=== PATIENT | female | born 1995 | race Two or more races ===

== ENCOUNTER 2024-10-13 07:48 | Emergency (ER) | payer OTHER, SELFPAY ==
[2024-10-13 07:49] VITALS: BMI 31.4
[2024-10-13 07:58] VITALS: BP 110/70; PULSE 77; RESP 16; TEMP 37; O2SAT 98
--- NOTE | 2024-10-13 08:17 | XR_ITS ---
Examination: Complete OB ultrasound, less than 14 weeks, transabdominal Date and time of exam: October 13, 2024, 0901 hrs. Indications: Heavy vaginal bleeding beginning 8 days ago Technique: Obstetrical ultrasound images less than 14 weeks performed via transabdominal imaging Findings: A normal shaped single intrauterine gestation is present in the uterus. CRL 3.9 cm corresponds to 10 weeks 5 day gestational age Cardiac motion 147 BPM Adjacent subchorionic hemorrhage 21 x 9 x 21 mm Ultrasonographic survey of visible structures unremarkable. Amniotic fluid volume appears appropriate for this estimated gestational age. Right ovary 3.1 cm arterial flow Left ovary 3.4 cm arterial flow. Impression: Viable intrauterine gestation 10 weeks 5 days Recommend short-term follow-up pelvic sonography, given the subchorionic hemorrhage
--- NOTE | 2024-10-13 08:17 | PD.EDABDPN ---
ED Abdominal Pain RME/HPI General Chief Complaint: Abdominal Pain Stated complaint: 4WK PREG/ABD PAIN Time seen by provider: 10/13/24 07:50 Arrival date/time: 10/13/24 07:48 This is a case of 29-year-old female who came in in the emergency room due to pelvic pain and vaginal bleeding patient is 4 weeks LMP July 27, 2024 patient is 2 para 1 patient states that she started to have pelvic pain cramping in character and vaginal spotting 1 week prior to arrival in the emergency room persistence of the symptoms this patient decided to start consult here in the emergency room Limitations: no limitations Related Data Home Medications ?Medication ?Instructions ?Recorded ?Confirmed [id number] 1 mg 1 tab PO DAILY 08/04/22 08/22/22 tablet Allergies Allergy/AdvReac Type Severity Reaction Status Date / Time No Known Allergies Allergy Verified 10/13/24 07:53 Review of Systems Review of Systems Systems Reviewed: All systems reviewed, normal except as documented Constitutional Constitutional: Reports system reviewed and no additional complaints, except as documented ENT Ears, Nose, Mouth, and Throat: Denies dysphagia and Denies odynophagia Cardiovascular Cardiovascular: Reports system reviewed and no additional complaints, except as documented Respiratory Respiratory: Reports system reviewed and no additional complaints, except as documented Gastrointestinal Gastrointestinal: Reports system reviewed and no additional complaints, except as documented, Reports abdominal pain, Denies coffee ground emesis, Denies constipation, Reports cramping, Denies diarrhea, Denies dyspepsia, Denies dysphagia, Denies early satiety, Denies excessive flatus, Denies fecal incontinence, Denies heartburn, Denies hematemesis, Denies hematochezia, Denies loose stools, Denies melena, Denies odynophagia, Denies tenesmus and Denies vomiting Genitourinary Genitourinary: Reports system reviewed and no additional complaints, except as documented, Reports abnormal vaginal bleeding, Denies dysuria, Denies genital pruritis, Denies urinary frequency, Denies urinary incontinence, Denies urinary hesitancy, Denies urinary urgency, Denies vaginal discharge, Denies vaginal dryness, Denies vaginal odor and Denies vaginal pruritus Integumentary/Breasts Skin/Breast: Reports system reviewed and no additional complaints, except as documented Neurologic Neurologic: Reports system reviewed and no additional complaints, except as documented Past Medical History Past Medical History NEUROLOGIC: Positive Neurological Disorders and Meningitis (as a ) CARDIAC: Negative Cardiac Disorders or Congestive Heart Failure RESPIRATORY: Negative Chronic Obstructive Pulmonary Disease (COPD) GASTROINTESTINAL: Negative Gastrointestinal Disorders or Hepatitis GENITOURINARY: Negative Genitourinary Disorders or Renal Disease REPRODUCTIVE: Negative Pelvic Inflammatory Disease MUSCULOSKELETAL: Negative Musculoskeletal Disorders ENDOCRINE: Negative Endocrine Disorders, Diabetes Mellitus Type 1 or Diabetes Mellitus Type 2 HEMATOLOGIC: Negative Blood Disorders OTHER HISTORY: Positive Hospitalization (gastric bypass (06/2021)) and Chicken Pox (); Negative Autoimmune Disease, Down Syndrome, Developmental Delay, Shingles, Falls, Blood Transfusions, Blood Transfusion Reaction, Anesthesia Reactions, Organ Transplant, Chemotherapy, Radiation Therapy, Hyperbaric Therapy, MRSA, VRSA, Vancomycin-Resistant Enterococci, Human Immunodeficiency Virus (HIV), Measles, Mumps, Rubella (Panamanian Measles), Pertussis, Clostridium Difficile or Cancer Family History FAMILY HISTORY: Positive Family Cancer (Breast CA (grandmother)) and Family Surgery (Mother- ankle); Negative Family Psychiatric Problems, Family Respiratory Disorders, Family Cardiac Disorders, Family Gastrointestinal Problems or Family Anesthesia Reaction Surgical History SURGICAL: Positive Abdominal Surgery and Gastric Bypass Surgery (gastric sleebe (06/2021)); Negative Cardiac Surgery, Endocrine Surgery, Ear Surgery, Nephrectomy, Joint Replacement, Neurologic Surgery, Mastectomy, Section, Vasectomy or Organ Transplant Social History SMOKING STATUS: Never smoker SECOND HAND EXPOSURE: No ED Exam General Limitations: Present no limitations General appearance: Present alert and in no apparent distress Head Head exam: Present atraumatic Eye Eye exam: Present normal appearance, PERRL and EOMI ENT ENT exam: Present normal exam, normal oropharynx and mucous membranes moist Neck Neck exam: Present normal inspection, full ROM and trachea midline Chest Chest inspection: Present normal inspection and symmetric chest wall rise Respiratory Respiratory exam: Present normal lung sounds bilaterally; Absent respiratory distress, wheezes, stridor, accessory muscle use or prolonged expiratory phase Cardiovascular Cardiovascular exam: Present regular rate, normal rhythm and normal heart sounds Abdominal Exam Abdominal exam: Present soft and normal bowel sounds; Absent distention, tenderness, guarding, rebound, rigidity, diminished bowel sounds, hyperactive bowel sounds, hypoactive bowel sounds, organomegaly, trauma, psoas sign, obturator sign, Cantrell's sign, Rovsing's sign or tenderness at McBurney's Point Extremities Exam Extremities exam: Present normal inspection and full ROM Back Exam Back exam: Present normal inspection and full ROM Neurological Exam Neurological exam: Present alert, oriented X3, CN II-XII intact, normal gait and reflexes normal; Absent motor sensory deficit Psychiatric Psychiatric exam: Present normal affect and normal mood Skin Skin exam: Present warm, dry, intact and normal color Course Quality Measures none Orders Category Date Time Status US OB <= 14 weeks fetus Stat Exams 10/13/24 08:17 Completed ABO/RH Type Stat Lab 10/13/24 08:52 Results Beta HCG,Quantitative Stat Lab 10/13/24 08:52 Completed CBC Stat Lab 10/13/24 08:52 Completed CMP [Comprehensive Metabolic Panel] Stat Lab 10/13/24 08:52 Completed Urinalysis Stat Lab 10/13/24 08:30 Completed Vital Signs Vital signs: Vital Signs Temperature 98.6 F 10/13/24 07:58 Pulse Rate 77 10/13/24 07:58 Respiratory Rate 16 10/13/24 07:58 Blood Pressure 110/70 10/13/24 07:58 Pulse Oximetry (%) 98 10/13/24 07:58 Oxygen Delivery Method Room Air 10/13/24 07:58 Patient is afebrile not tachycardic not tachypneic BP stable not hypoxic oxygen saturation is 98% in room air Abdominal Pain MDM MDM Narrative MDM Narrative:: This is a case of 29-year-old female who came in in the emergency room due to pelvic pain and vaginal bleeding patient is 4 weeks LMP July 27, 2024 patient is 2 para 1 patient states that she started to have pelvic pain cramping in character and vaginal spotting 1 week prior to arrival in the emergency room persistence of the symptoms this patient decided to start consult here in the emergency room patient is awake alert oriented not in distress nontoxic looking excellent skin turgor no signs and symptoms of sepsis no signs and symptoms of dehydration abdominal exam is benign nonsurgical no guarding no rebound no rigidity blood test showed no leukocytosis no anemia kidney and liver function is normal no electrolyte imbalance patient A+ blood type patient beta-hCG [id number] urinalysis normal no urinary tract infection patient pelvic ultrasound showed 10 weeks with heart rate of 147 at this point patient is treated as threatened I discussed the patient to follow-up with primary care physician in 2 days for reevaluation and need to see an OB outside industrial sales representative in 2 days for checkup and for reevaluation of threatened or miscarriage patient was advised if not seen in 2 days the OB return to the emergency room for repeat beta-hCG and pelvic ultrasound patient was advised also for any worsening symptoms or any emergent concerns she needs to return to the emergency room immediately or call 911 keep herself hydrated continue multivitamins no sex until cleared by the primary care physician and pelvic rest as advised Patient was discharged with comfortable condition walking with stable gait. Patient verbalized no further complains explained diagnosis and answered patient question. Patient is comfortable with the proposed management plan including the need to follow up with his/her primary care physician and any specialist if applicable Discussed patient for any urgent condition or worsening sx, He/She needed to go to emergency room immediately or call 911. Patient acknowledge the responsibility to follow up as instructed and to monitor her/his symptoms. For any persistence of the symptoms for more than 3-5 days return precaution advised. Discussed the result of the test and was given printed discharge instruction Patient data External records reviewed:: [facility] previous records Clinical information provided by:: none Social determinants that could affect healthcare access:: none Patient has the following chronic illnesses:: None How is presenting disease/condition affected by chronic disease/condition?: no chronic disease Evaluation data The following diagnostics were reviewed and interpreted by me:: lab results and radiology exam(s) Lab and/or radiology exams considered but not ordered:: Reviewed Interpretation Summary: Reviewed Medications / Prescriptions Medications or Prescriptions considered but not ordered:: Given Medication administrations:: Given Consultations Consultation(s) initiated? (list below): No Diagnosis Differential diagnosis abdominal pain: other (Threatened urinary tract infection) Most likely diagnosis given after review of the tests above:: Abdominal pain in threatened Admission Indicated Admission indicated?: not indicated Explain why admission is indicated or not indicated:: Not indicated Admission Request Was there a request for admission?: No Admission Attestation Admission request attestation: Not indicated Disposition Plan Disposition Plan: Discharge Discharge Attestation Discharge Attestation: The patient and all family members were given an opportunity to ask questions and understood the discharge instructions. Discharge instructions specifically effects, indications for sooner follow up or return to the emergency department, and the expected course of current diagnosis. Patient condition: Stable Discharge Plan Plan Patient Disposition: HOME (Self Care) Patient condition on transfer: Stable Prescriptions/Referrals Prescriptions/Med Rec: No Action 1 mg Tablet 1 tab PO DAILY Referrals: Omar Blue MD [Primary Care Provider] - In 1 week Problem List Clinical Impression: Abdominal pain during , Miscarriage, threatened, early Patient/Caregiver Discharge Instructions Education Materials: ED Abdominal Pain, Early , ED Possible Miscarriage ... Additional Instructions: Follow-up with your primary care physician in 2 days for reevaluation it is very important to see an OB outside industrial sales representative in 2 days for reevaluation and checkup if not seen OB in 2 days return in the emergency room for repeat beta-hCG and pelvic ultrasound for reevaluation of threatened for any worsening symptoms or any emergent concern return to the emergency room immediately or call 911 increase fluid intake continue multivitamins no sex until cleared by your OB pelvic rest is advised Print Language: Korean Stand Alone Forms: Yulissa Award Info., Patient Portal Info Letter 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
[2024-10-13 08:37] LABS: Collection Type, Urine Voided
[2024-10-13 08:58] LABS: Bacteria,Urine 1+; Bilirubin,Urine Negative (Negative); Blood,Urine Negative (Negative); Color,Urine Yellow (Lt Yel-Yel); Glucose, Urine Negative (Negative); Ketones,Urine Negative (Negative); Leukocyte Esterase,Urine Negative (Negative); Nitrite,Urine Negative (Negative); PH,Urine 7.5 (5.0-7.0); Protein,Urine Trace (Neg - Trace); RBC,Urine 2 /hpf (0-3); Specific Gravity,Urine 1.031 (1.001-1.035); Squamous Epithelial Cell,Urine 2 /hpf (0-5); Urobilinogen,Urine Negative mg/dL (0.0-1.0); WBC,Urine < 1 /hpf (0-5)
[2024-10-13 08:59] LABS: Clarity,Urine Hazy (Clear/Hazy)
[2024-10-13 09:08] LABS: Basophils % (Auto) 1 % (0-2.5); Eosinophils # (Auto) 0.1 Thou/mm3 (0.0-0.5); Eosinophils % (Auto) 1 % (0-10); Hematocrit 38.2 % (36.0-46.0); Immature Granulocytes % (Auto) 0 % (0-0); Immature Granulocytes Auto 0.03 Thou/mm3 (0.00-0.00); Lymphocytes # (Auto) 1.7 Thou/mm3 (1.0-4.8); Lymphocytes % (Auto) 23 % (10-50); Mean Corpuscular Hemoglobin 28.1 pg (25.0-35.0); Mean Corpuscular Volume 83 fL (80-100); Monocytes # (Auto) 0.4 Thou/mm3 (0.0-0.8); Monocytes % (Auto) 6 % (0-12); Neutrophils # (Auto) 5.3 Thou/mm3 (1.8-7.7); Neutrophils % (Auto) 70 % (37-80); Nucleated Red Blood Cell % 0 /100 WBC (0); Platelet Count 295 Thou/mm3 (140-440); RDW Standard Deviation 38.8 fL (36.4-46.3); Red Blood Count 4.63 Miln/mm3 (4.00-5.20); White Blood Count 7.7 Thou/mm3 (3.6-11.0)
[2024-10-13 09:28] LABS: Alanine Aminotransferase 12 U/L (10-49); Albumin, Serum 4.5 gm/dL (3.5-5.0); Albumin/Globulin Ratio 1.7 (1.2-2.2); Alkaline Phosphatase 63 U/L (46-116); Anion Gap 10 (7-16); BUN/Creatinine Ratio 15 Ratio (12-20); Bilirubin,Total 0.4 mg/dL (0.3-1.2); Blood Urea Nitrogen 9 mg/dL (9-23); Calcium 9.2 mg/dL (8.3-10.6); Calcium (Corrected) 9.2 mg/dL (8.5-10.1); Carbon Dioxide 24.8 mMol/L (20.0-31.0); Chloride 105 mMol/L (98-107); Creatinine (Component) 0.6 mg/dL (0.6-1.3); Estimated Creatinine Clearance 141.6 mL/min (>60); Globulin 2.6 gm/dL (2.3-3.5); Glucose 74 mg/dL (74-106); Osmolality,Calculated 277 (275-295); Potassium 3.8 mMol/L (3.4-5.1); Sodium 140 mMol/L (136-145); Total Protein 7.1 gm/dL (5.7-8.2); eGFR > 60 See Note
[2024-10-13 10:01] LABS: Beta HCG,Quantitative 83227 mIU/mL (<5.0)
[2024-10-13 10:37] VITALS: BP 103/70; PULSE 70; RESP 18; TEMP 36.8; O2SAT 99
== END 2024-10-13 10:38 | disposition home or self-care (01) ==
PROVIDERS: Nurse Practitioner Family; Emergency Provider Family Medicine; PCP Family Medicine
DX: O20.0 Threatened abortion (principal); Z3A.10 10 weeks gestation of pregnancy
CPT/HCPCS: 36415; 76801; 80053; 81001; 84702; 85025; 86900; 86901; 99284

== ENCOUNTER 2025-04-16 09:31 | Outpatient (AMB) | payer MEDICAID, SELFPAY ==
--- NOTE | 2025-04-16 09:53 | OBCLNT_ITS ---
Vital Signs 04/16/25 09:54 Height 1.63 m Height Method Stated Weight 90.832 kg Weight Measurement Method Standing Scale BMI 34.3 BP 116/79 Blood Pressure Source Automatic Cuff Blood Pressure Location Left Upper Arm Position Sitting Respiration 16 Pulse 89 Pulse Source Monitor Temp 97.5 F Temp Source Oral Pulse Oximetry (%) 96 Oxygen Delivery Method Room Air Allergies/Home Meds Allergies & Medications Allergies No Known Allergies Allergy (Verified 04/16/25 09:54) Medication Reconciliation [id number] 1 mg tablet 1 tab PO DAILY 08/04/22 [History Confirmed 04/16/25] Intake Visit Data Collection New Patient or Established: Established Patient (seen at [facility] within 3 years) Reason for Visit:: TRANSFER INITIAL CARE Seen by Clinical Staff ONLY (RN/MA): No Button Spindler Required: No Do You Feel Safe at Home: Yes Authorities Contacted: N/A PCP or OBGYN visit in last 3 months: Yes Hx Now: Yes Are you currently on any form of Control: No Last menstrual period: 07/23/24 Pain Present Currently: Yes Pain Location: Abdomen and Back Pain Scale Used: Palma-Rodas/Numerical Pain scale:: 10 Smoking Status Smoking Status: Never smoker Immunizations Flu Vaccine in the Last 12 Months: Yes Flu Vaccine Exclusion Criteria: Already Received Questionnaires Covid-19 Vaccine Questionnaire Has patient been vacinated for Covid-19 Have you been vacinated for Covid-19: Yes PHQ-9 PHQ-2 Over the last 2 weeks, how often have you been bothered by any of the following problems? 1. Little interest or pleasure in doing things: not at all 2. Feeling down, depressed, or hopeless: not at all Total score: 0 PHQ-9 3. Trouble falling or staying asleep, or sleeping too much: Not at all 4. Feeling tired or having little energy: Not at all 5. Poor appetite or overeating: Not at all 6. Feeling bad about yourself - or that you are a failure or have let yourself or your family down: Not at all 7. Trouble concentrating on things, such as reading the newspaper or watching television: Not at all 8. Moving or speaking so slowly that other people could have noticed? - Or the opposite - being so fidgety or restless that you have been moving around a lot more than usual: not at all 9. Thoughts that you would be better off or of hurting yourself in some way: Not at all Total score: 0 Source: Developed by Drs. Kenton Bolivar, Brigette Alexis, Pranay Vo and colleagues, with an educational parker from [employer]. Depression screen completed yes Social History Living Situation History Lives With: Family Housing: House Tobacco History Smoking Status: Never smoker Second Hand Smoke Exposure: No Alcohol History Alcohol Intake: Never Domestic Abuse History Do You Feel Safe at Home: Yes History of Present Illness HPI Narrative Severe headaches, anemia, back pain, pelvic pain, some days unable to get out of bed or walk Kellie Aragon is a patient transferring care from [facility] with a due date of May 06, presenting for routine care with multiple -related complaints. She reports that this has been awful with severe headaches, anemia, back pain, and pelvic pain. These symptoms have significantly impacted her daily functioning, with some days being unable to get out of bed or walk. The patient was terminated from her job in December and has been unable to work since then. This is her second , with her first child turning [age] in August. She has a history of bariatric surgery in 2021, after which she lost approximately 80 pounds and stabilized at 150 pounds before this . She currently weighs around 200 pounds. The patient reports adherence to vitamins including B12, folic acid, and vitamin D. Regarding glucose screening, she did not pass the initial glucose test and has not completed the recommended 3-hour glucose tolerance test. She was told her results were bad but that the baby is healthy. She was unable to take the second test as scheduled because she was sick with a fever at the time. Her most recent ultrasound was performed a week and a half ago, showing the baby weighs 6.5 pounds. Surgical History: - Bariatric surgery in 2021 Obstetric History: - GTPAL: G2 T1 L1 - Current : Estimated due date May 06, 2025 - First child will be [age] years old in August Medications: - vitamins - B12 - Folic acid - Vitamin D Social History: - Terminated from job in December, currently unable to work - Has one child who will be [age] years old in August, currently with second child - Panel (12-02-2024): Blood group A-positive, antibody screen negative, rubella non-immune, RPR nonreactive, hepatitis B and C negative, HIV nonreactive - CBC (12-02-2024): Hemoglobin 12.1 g/dL, platelets 331 - CBC (02-24-2025): Hemoglobin 9.6 g/dL, hematocrit 31.3%, platelets 297 - One-hour glucose tolerance (02-24-2025): 161 - Ultrasound (04-04-2025): Estimated weight 6.5 pounds 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: Past Medical History Past Medical History: Yes Hx Neurological Disorders, No Hx Cardiac Disorders, No Hx Cancer, No Hx Blood Disorders, No Hx Gastrointestinal Disorders, No Hx Renal Disease, No Hx Diabetes Mellitus Type 1 and No Hx Diabetes Mellitus Type 2 OB Initial Visit OB Flowsheet OB Flowsheet Initial Weight: Not Recorded Date -?-?-?-?-?-?-?-?-?-?-?-?- EGA Weight BP Alb Glu CTX Pres Fundal ht FHR Mov Dilation Station Effacement Hx Notes Visit Note 04/16/25 -?-?-?-?-?-?-?-?-?-?-?-?- 37w 1d 90.832 kg 116/79 OBI Please see PN Menstrual History Menstrual reliability: definite Flow: normal Menstrual regularity: regular Monthly: Yes Age at menarche: 7 On control pills at conception: No Associated symptoms (LMP): Denies amenorrhea, nausea, vomiting, fatigue, breast tenderness, urinary frequency, irritability, bloating or other OB History : 2 Para: 1 # of Living Children: 1 Delivery History 1st : Child's name: JOSE date: 11/21/22 sex: female Gestational age at delivery (weeks): 40 Delivery type: vaginal Delivery complications: NONE History of depression before or after : No Infection History & Risk Evaluation History of STDs: none Genetic Screening & History Genetic Screening/Teratology Counseling - Includes patient, baby's father, or anyone in either family with: 1. Patient's age 35 years or older as of estimated date of delivery: No 2. Thalassemia (Senegalese, Nauruan, Mediterranean, or Background); MCV less than 80: No 3. Neural Tube Defect (Meningomyelocele, Spina Bifida, or Anencephaly): No 4. Congenital Heart Defect: No 5. Down Syndrome: No 6. Dane-Sachs (Ashkenazi Presybeterian, Cajun, Citizen Of The [place]): No 7. Emily Disease (Ashkenazi Presybeterian): No 8. Familial Dysautonomia (Ashkenazi Presybeterian): No 9. Sickle Cell Disease or Trait (): No 10. Hemophilia or other blood disorders: No 11. Muscular Dystrophy: No 12. Cystic Fibrosis: No 13. Lind's Chorea: No 14. Mental Retardation/Autism: No 15. Other inherited genetic or chromosomal disorder: No 16. Maternal Metabolic Disorder (EG,TYPE 1 Diabetes, PKU): No 17. Patient or baby's father had a child with defects not listed above: No 18. Recurrent loss or a stillbirth: No 19. Medications (including supplements, vitamins, herbs or otc drugs)/illicit/recreational drugs/alcohol since last menstrual period: No 20. Any other: No Infection History 1. Live with someone with TB or exposed to TB: No 2. Rash or viral illness since last menstrual period: No 3. Hepatitis B,C: No Other (see comments) Source: [employer] Review of Systems Constitutional Constitutional: Denies fatigue Gastrointestinal Gastrointestinal: Denies bloating, Denies nausea and Denies vomiting Genitourinary Genitourinary: Denies amenorrhea and Denies urinary frequency Psychiatric Psychiatric: Denies irritability Endocrine Endocrine: Denies fatigue Exam General General Appearance: alert, in no apparent distress and healthy appearing Head Head exam: atraumatic Neck Neck exam: Present normal inspection and trachea midline Chest Chest inspection: Present normal inspection and symmetric chest wall rise External exam: Present normal external exam; Absent tenderness Neuro Neurological exam: Present oriented X3 Psych Psychiatric exam: Present normal affect and normal mood Office Procedures [facility] Clinic LOC & Office Proc's Nursing/Assessment Patient Status: Established Patient OB Clinic Nursing Assessment: Medication Reconciliation, Update PMH in EMR and Vital Signs OB Clinic Coordination of Care: Complex Care and Chronic Disease 1-5, Consent,records obtained, informed consent, Education Simp Pt/Fam, 1 Ins Authorization, Lab and Imaging orders, Results/Orders obtained and Staff clarify orders Special Needs: Heart tones Established Patient Charge Established Patient Point Assignment: 150 Established Patient Point Charge: EP Level 4 (120-155) Assessment & Plan Diagnosis / Problem List (1) Supervision of high risk , unspecified, third trimester: Status: Acute Plan , intrauterine, 38+ weeks gestation Assessment: Patient is at 38+ weeks gestation with estimated due date of May 06. Recent ultrasound one and a half weeks ago showed weight of 6.5 pounds. heart rate is 138 bpm, which is within normal limits. This is her second with first child turning [age] in August. Patient has hi story of bariatric surgery in 2021 with 80-pound weight loss, stabilizing at 150 pounds pre- and currently weighing around 200 pounds. Plan: - Weekly visits from now until delivery - If not in labor by due date, schedule induction at 41 weeks - Obtain ultrasound report from recent scan and place in chart - Obtain medical information from [facility] Failed Glucose Tolerance Test Assessment: Patient did not pass initial glucose screening test and has not completed the recommended 3-hour glucose tolerance test due to illness with fever at the time of scheduled testing. One-hour glucose tolerance result was 161 mg/dL. Given history of gastric bypass surgery, A1c testing is more appropriate than glucose tolerance testing. Recent A1c was 5.0, indicating good glycemic control. Plan: - Perform A1c test instead of glucose tolerance test due to history of gastric bypass - Complete necessary lab orders Anemia Assessment: Patient reports anemia as one of her significant symptoms. Laboratory results show declining hemoglobin from 12.1 initially to 9.6 on 02-24-25, with hematocrit of 31.3. Ferritin level is low at 5, indicating iron deficiency. B12 level is 166. Plan: - Lab orders to be completed at [facility] on [address] Severe Headaches Assessment: Patient reports severe headaches as part of constellation of symptoms that have made this difficult and significantly impacted her functional status, including inability to work since job termination in December. Plan: - Complete disability form Back and Pelvic Pain Assessment: Patient experiences significant back pain and pelvic pain that contribute to functional impairment, with some days unable to get out of bed or walk. These symptoms have contributed to her inability to work. Plan: - Complete disability form Vitamin D Deficiency Assessment: Vitamin D level is significantly low at 8.0. Patient is taking vitamins including vitamin D supplementation along with B12 and folic acid. Plan: - Continue current vitamin supplementation including vitamin D
[2025-04-16 09:54] VITALS: BP 116/79; PULSE 89; RESP 16; TEMP 36.4; O2SAT 96; BMI 34.3
== END 2025-04-16 10:22 | disposition home or self-care (01) ==
LOC: HODSOBC 09:31
PROVIDERS: PCP Family Medicine; Referring Provider Family Medicine; Supervising Provider Obstetrics & Gynecology; Visit Provider Obstetrics & Gynecology
DX: O09.893 Supervision of other high risk pregnancies, third trimester (principal); O99.843 Bariatric surgery status complicating pregnancy, third trimester; O99.283 Endocrine, nutritional and metabolic diseases complicating pregnancy, third trimester; E55.9 Vitamin D deficiency, unspecified; O99.013 Anemia complicating pregnancy, third trimester; R51.9 Headache, unspecified; O99.891 Other specified diseases and conditions complicating pregnancy; M54.9 Dorsalgia, unspecified; R10.20 Pelvic and perineal pain unspecified side; Z3A.37 37 weeks gestation of pregnancy
CPT/HCPCS: 99214; G0463

== ENCOUNTER 2025-04-25 10:10 | Outpatient (AMB) | payer MEDICAID, SELFPAY ==
[2025-04-25 10:22] VITALS: BP 107/72; PULSE 76; RESP 14; TEMP 36.6; O2SAT 96; BMI 33.8
--- NOTE | 2025-04-25 10:22 | OBCLNT_ITS ---
Vital Signs 04/25/25 10:22 Height 1.63 m Height Method Stated Weight 89.981 kg Weight Measurement Method Standing Scale BMI 33.8 BP 107/72 Blood Pressure Source Automatic Cuff Blood Pressure Location Left Upper Arm Position Sitting Respiration 14 Pulse 76 Pulse Source Monitor Temp 97.8 F Temp Source Oral Pulse Oximetry (%) 96 Oxygen Delivery Method Room Air Allergies/Home Meds Allergies & Medications Allergies No Known Allergies Allergy (Verified 05/03/25 03:43) Medication Reconciliation [id number] 1 mg tablet 1 tab PO DAILY 08/04/22 [History Confirmed 05/03/25] ibuprofen 400 mg tablet 800 mg (2 x 400 mg) PO X1 PRN uterine cramping #30 tabs 05/04/25 [Rx] Immunizations Immunizations Flu Vaccine in the Last 12 Months: No Flu Vaccine Exclusion Criteria: Refused by Patient Care OB Visit Log OB Flowsheet Initial Weight: Not Recorded Date -?-?-?-?-?-?-?-?-?-?-?-?- EGA Weight BP Alb Glu CTX Pres Fundal ht FHR Mov Dilation Station Effacement Hx Notes Visit Note 04/16/25 -?-?-?-?-?-?-?-?-?-?-?-?- 37w 1d 90.832 kg 116/79 OBI Please see PN 04/25/25 -?-?-?-?-?-?-?-?-?-?-?-?- 38w 3d 89.981 kg 107/72 absent cephalic 39 145 active - She reports experiencing significant pelvic pressure, particularly when getting up to use the restroom. - Describes feeling like he's already coming out when she stands up. - Patient reports the baby is very activ e. - She expresses preference to avoid induction if possible. - If no dilation or contractions by 41 weeks, will induce labor - Group B Strep culture collected today - Follow-up appointment scheduled for ne xt week at 39 weeks with Shayna (Dr. Loya will be out) ADRIEN Calculator Estimated Delivery Date Method Current WG Current Estimate 05/06/25 LMP (Certain) 40w 0d Office Procedures O[facility] Clinic LOC & Office Proc's Nursing/Assessment Patient Status: Established Patient OB Clinic Nursing Assessment: Medication Reconciliation, Update PMH in EMR and Vital Signs OB Clinic Coordination of Care: Complex Care and Chronic Disease 1-5, Consent,records obtained, informed consent, Education Simp Pt/Fam, 1 Ins Authorization, Lab and Imaging orders, Results/Orders obtained and Staff clarify orders Special Needs: Heart tones Miscellaneous Interventions: Culture Specimen Collection Established Patient Charge Established Patient Point Assignment: 165 Established Patient Point Charge: EP Level 5 (160-above) Assessment & Plan Diagnosis / Problem List (1) Supervision of high risk , unspecified, third trimester: Status: Acute Plan Assessment 38 weeks and 3 days gestation in a 2 para 1 patient presenting for routine care. Cervical examination reveals 1 centimeter dilation with head engaged and pressing against the bladder, causing patient to experience significant pelvic pressure especially when ambulating to use the restroom. Group B Streptococcus culture was collected during the visit. activity is reported as very active by the patient. Plan - If no dilation or contractions by 41 weeks, will induce labor - Group B Strep culture collected today - Follow-up appointment scheduled for next week at 39 weeks with Shayna (Dr. Loya will be out) 1. Progress Reviewed gestational age at 38 weeks 3 days, growth, and heart rate. Patient reports increased pelvic pressure. Cervical examination performed s howing 1 cm dilation with head at station pressing against bladder. Baby noted to be very active. Planned frequent visits (every 2 weeks until 36 weeks, then weekly). 2. Instructed patient to monitor movements and report decreases immediately. 3. Testing Group B Strep culture collected during visit. Counseled on routine third- trimester labs per guidelines. Discussed potential need for ultrasound or monitoring based on risk factors. 4. Preeclampsia Precaution Educated on preeclampsia signs: severe headache, vision changes, right upper quadrant pain, sudden swelling. Advised urgent reporting of symptoms and discussed blood pressure monitoring if high risk. 5. Labor Precautions Reviewed labor signs: regular contractions, pelvic pressure, back pain, bleeding, or fluid leakage. Instructed to seek immediate care for these symptoms. 6. Lifestyle and Delivery Preparation Reinforced vitamins, nutrition, and safe activity. Discussed plan including patient's preference to avoid induction unless medically necessary. Plan established for induction at 41 weeks if spontaneous labor does not occur. Advised on labor preparation (e.g., hospital bag) and expectations. 7. Psychosocial Support Assessed emotional well-being and offered resources for mental health or parenting support.
== END 2025-04-25 10:32 | disposition home or self-care (01) ==
LOC: HODSOBC 10:10
PROVIDERS: Supervising Provider Obstetrics & Gynecology; Visit Provider Obstetrics & Gynecology
DX: O09.93 Supervision of high risk pregnancy, unspecified, third trimester (principal); Z3A.38 38 weeks gestation of pregnancy; Z36.85 Encounter for antenatal screening for Streptococcus B; Z28.21 Immunization not carried out because of patient refusal
CPT/HCPCS: 99215; G0463

== ENCOUNTER 2025-05-03 03:07 | Inpatient (IN) | payer MEDICAID, SELFPAY ==
[2025-05-03] VITALS (124 sets, daily range): BP systolic 87–132; BP diastolic 50–75; PULSE 52–138; RESP 16–99; TEMP 36.6–37.1; O2SAT 87–100; BMI 34.1
--- NOTE | 2025-05-03 05:23 | ESHP_ITS ---
Documentation for date of: 05/03/25 OB Labor/Induct. HPI History of Present Illness Chief complaint: Active labor : 2 Para: 1 Term pregnancies: 1 pregnancies: 0 Living children: 1 History of Abortions: Spontaneous and Elective: 0 History of Vaginal deliveries: 1 History of sections: No History of : No Date of last menstrual period: 07/27/24 ADRIEN: 05/06/25 Gestational Age (weeks): 39 Gestational Age (days): 4 Gestational age based on last menstrual period: 40 History of present illness: The patient is a 29-year-old -0-0-1 history of vaginal delivery x 1 in 2022 presented to triage in early labor. She was 3 cm dilated but very posterior on first evaluation. She was monitored for an hour to 2 hours and rechecked. Patient progressed to 5 cm dilatation and was admitted in labor. Her past medical history significant for a gastric sleeve in 2021. She had 1 vaginal delivery in 2022 complicated by hemorrhage of 800 cc. Group B strep is negative. Of note, her care was with [facility] until recently when she was transferred at 36 weeks. She had one visit at the [facility] OB clinic at 37 weeks. Group B strep is negative History of Present Dating criteria: LMP confirmed by 2nd trimester US Adequate Care: Yes (transfer from [facility]) Ultrasounds: normal mid trimester US Obstetrical complications: none and other (History of hemorrhage last ) Medical complications: psychiatric (History of anxiety depression and depression), musculoskeletal (Multiple complaints lower back and pelvic pain during ) and other (History of gastric sleeve in 2021 with resulting anemia) Labs Maternal Blood Type: A Pos Labs: Negative: RPR and Group Beta Strep and Unknown: Hepatitis B, Rubella Titre, HIV, Chlamydia, Gonorrhea, Herpes Type 1 and Herpes Type 2 Past Medical History Surgical History SURGICAL: Negative Section Past Medical History Comments PMH COMMENT: Patient has a history of anxiety depression and history of depression She has a history of obesity status post gastric sleeve in 2021 current BMI is 34 She has a history of anemia and low B12 secondary to gastric sleeve. 1 hour glucose was elevated 161 Hemoglobin A1c is 5.0 Meds Home Medications and Allergies Home Medications ?Medication ?Instructions ?Recorded ?Confirmed ?Type apnbwuyq-tbi-Zu-FA 1 mg 1 tab PO DAILY 05/03/25 History tablet Allergies Allergy/AdvReac Type Severity Reaction Status Date / Time No Known Allergies Allergy Verified 05/03/25 03:43 OB Exam Physical Exam Vital signs: Temp Pulse Resp BP Pulse Ox 97.8 F 54 L 16 100/60 99 05/03/25 03:42 05/03/25 04:21 05/03/25 04:57 05/03/25 04:21 05/03/25 05:21 Routine Abdominal Exam Abdominal: Present soft Detailed Labor and Delivery Exam Effacement (%): 80 Cervix position: mid station: -2 Consistency: medium Presentation: Vertex Membranes: intact monitor accelerations: 15x15 monitor decelerations: None intermission coordinator variability: Moderate (11-25) Contraction frequency (min): Every 3 to 5 minutes Tachysystole: No Contraction intensity: Strong OB Assessment & Plan Assessment and Plan (1) Supervision of high risk , unspecified, third trimester: Status: Acute (2) H/O gastric sleeve: Status: Acute Assessment and plan: Patient has a history of anemia and hemorrhage. 2 lines and blood on hold. Additional Plan Induction method: none Plan: anticipate NVD
[2025-05-03] MEDS: RINGERS LACTATED 1000 ML 1,000 ML 125 ML IV ×3 (05:45→08:40)
[2025-05-03 06:00] LABS: Basophils # (Auto) 0.1 Thou/mm3 (0.0-0.2); Basophils % (Auto) 1 % (0-2.5); Eosinophils # (Auto) 0.1 Thou/mm3 (0.0-0.5); Eosinophils % (Auto) 1 % (0-10); Hematocrit 28.4 % (36.0-46.0); Hemoglobin 8.9 g/dL (12.0-16.0); Immature Granulocytes Auto 0.07 Thou/mm3 (0.00-0.00); Lymphocytes # (Auto) 2.7 Thou/mm3 (1.0-4.8); Lymphocytes % (Auto) 24 % (10-50); Mean Corpuscular HGB Conc 31.3 g/dl (31.0-37.0); Mean Corpuscular Hemoglobin 22.6 pg (25.0-35.0); Mean Corpuscular Volume 72 fL (80-100); Monocytes # (Auto) 0.7 Thou/mm3 (0.0-0.8); Monocytes % (Auto) 6 % (0-12); Neutrophils # (Auto) 7.5 Thou/mm3 (1.8-7.7); Neutrophils % (Auto) 68 % (37-80); Nucleated Red Blood Cell # 0.00 Thou/mm3 (0.00-0.00); Nucleated Red Blood Cell % 0 /100 WBC (0); Platelet Count 337 Thou/mm3 (140-440); RDW Standard Deviation 35.1 fL (36.4-46.3); Red Blood Count 3.93 Miln/mm3 (4.00-5.20); White Blood Count 11.1 Thou/mm3 (3.6-11.0)
[2025-05-03 07:02] LABS: Syphilis Nonreactive (Nonreactive)
[2025-05-03] MEDS: OXYTOCIN in NS 30 units 30 UNIT/500 ML BAG IV (10:28)
--- NOTE | 2025-05-03 10:32 | PD.LDPN ---
Documentation for date of: 05/03/25 OB Labor Progress Note Pain Control Pain control: tolerating well and epidural Pelvic Exam Dilation (cm): 7 Effacement (%): 80 station: -2 Amniotic membrane status: Ruptured Contractions Monitor mode: Internal Contraction frequency: 6-7 Contraction pattern: Coupling Contraction intensity: Moderate Status status: Category l Assessment and Plan Assessment: active labor Plan OB labor note: begin Pitocin augmentation Comments: Pitocin augmentation as contractions have spaced. History of Present Illness HPI The patient is a 29-year-old -0-0-1 history of vaginal delivery x 1 in 2022 presented to triage in early labor. She was 3 cm dilated but very posterior on first evaluation. She was monitored for an hour to 2 hours and rechecked. Patient progressed to 5 cm dilatation and was admitted in labor. Her past medical history significant for a gastric sleeve in 2021. She had 1 vaginal delivery in 2022 complicated by hemorrhage of 800 cc. Group B strep is negative. Of note, her care was with [facility] until recently when she was transferred at 36 weeks. She had one visit at the [facility] OB clinic at 37 weeks. Group B strep is negative Patient had epidural placed approximately 8:00 in the morning. I went to examine her at 855 and she was 6 to 7 cm amniotomy was performed intrauterine pressure catheter was placed clear fluid was noted.
[2025-05-03] MEDS: BENZO/LANO/ALOE (Dermoplast) 60 GM CAN 1 SPRAY TOP (12:30)
[2025-05-03] MEDS: OXYTOCIN in NS 20 units 20 UNIT/1,000 ML BAG 125 UNIT IV (12:49)
[2025-05-03] MEDS: IBUPROFEN TAB 400 MG TABLET 800 MG PO (20:58)
--- NOTE | 2025-05-03 22:41 | PD.LDDELS ---
Data (Patel) Data Hx Section: No Maternal Blood Type: A Pos Rubella Titre: Negative RPR: Non-reactive Labs: Negative: RPR, Hepatitis B, HIV, Chlamydia, Gonorrhea and Group Beta Strep : 2 Term: 1 : 0 Livin Abortions: Spontaneous & Theraputic: 0 Delivery Data (Patel) Labor Data Initiation of labor: Spontaneous Induction/Augmentation Agent: Pitocin ROM date: 05/03/25 ROM time: 08:55 Amniotic membrane rupture type: Artificial Amniotic fluid description: Clear Delivery Data EDC: 05/06/25 EDC calculated by:: LMP/early US confirmation Date of arrival to unit: 05/03/25 Onset of labor date: 05/03/25 Onset of labor time: 04:45 Complete dilation date: 05/03/25 Complete dilation time: 11:45 [place] delivery date: 05/03/25 [place] delivery time: 12:12 Gestational age (weeks): 39 Gestational age (days): 4 Placenta delivery date: 05/03/25 Placenta delivery time: 12:19 Stage 1 total time: Labor - Stage 1 Duration 7 hours and 0 minutes Delivered by: Wilma Alexander (OB Clinic) Delivery nurse: christa Cordova nurse: lalitha Restaurant Hospitality Manager at delivery: No Support person(s) at delivery: FOB Delivery Method Delivery method: Normal Vaginal Delivery Presentation: Vertex position: OA Anesthesia Type Anesthesia Type: Epidural Delivery Room Medications Delivery room medications: Pitocin 20 u IV Placenta Placenta delivery description: Spontaneous Cord blood sent to lab: Yes cord blood collection: Cord Blood Type Episiotomy Episiotomy description: None Perineal repair Sutures used for repair: 4.0 Chromic EBL Estimated blood loss (ml): 75 Umbilical Cord cord description: 3 Vessels Additional Procedures The patient is a 29-year-old -0-0-1 presented to labor and delivery in labor. She was 3 cm dilated. She was observed for an hour to 2 hours and progressed to 5 cm dilated. She was admitted. She had labor epidural placed. She had an AROM and low-dose Pitocin started. She went on to progressed to complete by 11:45 in the morning and began pushing shortly thereafter. She pushed approximately 25 minutes delivering a liveborn male at 12 12 in the afternoon. Findings: Liveborn male in the LUIS presentation with no nuchal cord or meconium. Apgars were 9 and 9. Weight was 8 pounds 7 ounces. As the baby was vigorous at , the infant was placed directly on mother's chest and delayed cord clamping was performed for 2 to 3 minutes. The cord was then clamped and cut and the infant stayed on mother's chest. Cord blood was collected and cord gases were saved. The placenta was then complete spontaneous grossly normal delivering within 5 minutes of the baby delivering. The patient sustained a first-degree perineal laceration repaired in a standard fashion using 1 [id number] suture of 4-0 chromic. Complications were none. Condition both mom and infant were in stable condition at delivery room. Complications Complications: None Data (Patel) [place] Data order: 1 's gender: Male Identification band number: [id number] weight (gms): 3830 g Weight (pounds): 8 lbs and 7.1 ozs 1 minute: 9 5 minutes: 9
[2025-05-04 00:21] VITALS: BP 93/54; PULSE 65; RESP 16; TEMP 36.8; O2SAT 98
[2025-05-04 04:04] VITALS: BP 102/66; PULSE 63; RESP 15; TEMP 36.6; O2SAT 98
[2025-05-04 06:13] LABS: Basophils # (Auto) 0.0 Thou/mm3 (0.0-0.2); Basophils % (Auto) 0 % (0-2.5); Eosinophils # (Auto) 0.1 Thou/mm3 (0.0-0.5); Eosinophils % (Auto) 1 % (0-10); Hematocrit 25.4 % (36.0-46.0); Immature Granulocytes Auto 0.04 Thou/mm3 (0.00-0.00); Lymphocytes # (Auto) 2.4 Thou/mm3 (1.0-4.8); Lymphocytes % (Auto) 22 % (10-50); Mean Corpuscular HGB Conc 30.7 g/dl (31.0-37.0); Mean Corpuscular Hemoglobin 22.7 pg (25.0-35.0); Mean Corpuscular Volume 74 fL (80-100); Monocytes # (Auto) 0.7 Thou/mm3 (0.0-0.8); Monocytes % (Auto) 7 % (0-12); Neutrophils # (Auto) 7.4 Thou/mm3 (1.8-7.7); Neutrophils % (Auto) 70 % (37-80); Nucleated Red Blood Cell # 0.00 Thou/mm3 (0.00-0.00); Nucleated Red Blood Cell % 0 /100 WBC (0); Platelet Count 291 Thou/mm3 (140-440); RDW Standard Deviation 36.5 fL (36.4-46.3); Red Blood Count 3.44 Miln/mm3 (4.00-5.20); White Blood Count 10.6 Thou/mm3 (3.6-11.0)
[2025-05-04 06:18] LABS: Hemoglobin 7.8 g/dL (12.0-16.0)
[2025-05-04 08:00] VITALS: BP 101/63; PULSE 71; RESP 16; TEMP 37.2; O2SAT 98
[2025-05-04] MEDS: PRENATAL VITAMIN/FE FUM/FA TABLET 1 TAB PO (08:18)
[2025-05-04] MEDS: DOCUSATE SOD 100 MG CAPSULE PO (08:18)
--- NOTE | 2025-05-04 08:51 | PC.NURSE ---
patient declined MMR at this time will get it later at dr office.
--- NOTE | 2025-05-04 09:52 | ESDS_ITS ---
DS: Providers Provider Date of admission: 05/03/25 04:57 Primary care physician: Physician No Primary/Family Admitting Provider: Wilma Alexander MD (OB Clinic) Attending Provider on Admission: Wilma Alexander MD (OB Clinic) Consults: 05/03/25 14:48 Referral Routine Comment: Attending Provider on DC: Alessandra Obrien MD Discharging Provider: Alessandra Obrien MD DS: Diagnosis Discharge Diagnosis (1) H/O gastric sleeve: Status: Acute (2) Vaginal delivery: Status: Acute (3) care and examination: Status: Acute Problem List Completed Was Problem List Reviewed/Reconciled?: Yes Summary/Hosp Course Brief History: The patient is a 29-year-old -0-0-1 history of vaginal delivery x 1 in 2022 presented to triage in early labor. She was 3 cm dilated but very posterior on first evaluation. She was monitored for an hour to 2 hours and rechecked. Patient progressed to 5 cm dilatation and was admitted in labor. Her past medical history significant for a gastric sleeve in 2021. She had 1 vaginal delivery in 2022 complicated by hemorrhage of 800 cc. Group B strep is negative. Of note, her care was with [facility] until recently when she was transferred at 36 weeks. She had one visit at the [facility] OB clinic at 37 weeks. Group B strep is negative Patient had epidural placed approximately 8:00 in the morning. I went to examine her at 855 and she was 6 to 7 cm amniotomy was performed intrauterine pressure catheter was placed clear fluid was noted./ patient had an on 05/03/2025 and she is > 24 hours after noon and would like to go home Peripartum Data Delivery Method: Normal Vaginal Delivery Episiotomy Description: None Laceration Description: see Delivery Summary Status at Discharge Cognitive/behavioral status at discharge: Patient has no complaints no Headache or blurry vision or epigastric pain No Chest pain or SOB No Palpitations No Nausea or vomiting or constipation No Back pain No Dysuria no Dizziness no calf pain / independent ambulation She is voiding spontaneously / adequately Passing flatus yes/ BM no Lochia average yes Bottle feeding Time Spent with Patient Time attestation: Total time spent providing and/or coordinating discharge services: Exam Vital Signs Temp Pulse Resp BP Pulse Ox O2 Del Method 97.8 F 63 15 102/66 98 Room Air 05/04/25 04:04 05/04/25 04:04 05/04/25 04:04 05/04/25 04:04 05/04/25 04:04 05/04/25 04:04 Narrative Exam Patient had a normal vaginal delivery. care routine. She is doing well, VSS alert and oriented/normal insight and judgment/denies depression or anxiety No chest pain No shortness of breath No fever Back pain manageable/denies Moving all extremities No calf pain Ambulating pain managed by Tylenol and Motrin, normal Lochia average Voiding spontaneously Other medical issues none Other concerns Planning to bottle Feed/ Counseled on breast-feeding Counseled on care and follow-up Discharge Plan Plan Patient Disposition: HOME (Self Care) Prescriptions/Referrals Prescriptions/Med Rec: New ibuprofen 400 mg Tablet 800 mg PO X1 PRN (Reason: uterine cramping) Qty: 30 0RF No Action 1 mg Tablet 1 tab PO DAILY Referrals: No Primary/Family,Physician [Primary Care Provider] Patient/Caregiver Discharge Instructions Discharge Activity: activity as tolerated Other Discharge Activity Instructions:: pelvic rest x 6 weeks / see her ob in 4 to6 weeks Other Discharge Diet Instructions: regular Education Materials: After a Vaginal , After Delivery [place] Concerns Print Language: Romanian Stand Alone Forms: Yulissa Award Info., Patient Portal Info Letter Discharge Order Discharge Orders: Discharge (Routine); Ordered 05/04/25 Ordered By: Alessandra Obrien Planned Discharge Date 05/04/25
[2025-05-04] MEDS: FERRIC SOD GLUC INJ 125 MG in SODIUM CHLORIDE 0.9% 100 ML 110 MG IV (10:56)
[2025-05-04 11:56] VITALS: BP 103/65; PULSE 70; RESP 16; TEMP 36.9; O2SAT 97
--- NOTE | 2025-05-04 14:06 | PC.NURSE ---
according to sw, patient has necessary resources for safe discharge
--- NOTE | 2025-05-04 14:18 | PC.SS ---
Shannan TORIBIO, met with the patient [id number] for an initial assessment due to symptoms of post- depression, depression, and anxiety. LITIGATION LEGAL SECRETARY introduced herself, explained her role in the agency, and clarified the reason for the visit. Limits of confidentiality were also discussed. The patient appeared alert and oriented to self, time, place, and situation. The patient appeared to be her stated age and made good eye contact. Her attitude was pleasant and cooperative, and her behavior and mood appeared ordinary. No signs of delusions or hallucinations were observed. The patient reported that she came to the hospital to deliver her son, Henrry Wayne. She was able to verify her address and phone number. The patient stated that she lives at home with her mother, Nadia, and her 2-year-old daughter, Monica. She is independent with all her activities of daily living (ADLs) and does not use any durable medical equipment (DME). Prior to admission, she was unemployed and currently receives [employer] and SNAP benefits. The patient denied any history of or current involvement in domestic violence and also denied any substance use. The patient reported being diagnosed with depression and anxiety. She shared that during her last , she experienced post- depression, which she attributed to her past situation. She recalled feeling sadness at the time, primarily due to the stress of taking care of her daughter, working from home, and feeling exhausted. The patient had been receiving psychotherapy services through [facility] but discontinued them when she stopped . She denied any history of or current homicidal ideation (HI), suicidal ideation (SI), auditory hallucinations (A/H), or visual hallucinations (V/H). The patient also denied any past suicide attempts. The patient stated that she is ready to return home and that her mother, Nadia, and her partner, Vladislav, will provide emotional support. At this time, the LITIGATION LEGAL SECRETARY did not complete any referrals but provided the patient with community resources for outpatient mental health services, a crisis line, outpatient medical clinics, and food/care home support.
== END 2025-05-04 14:55 | disposition home or self-care (01) | DRG 560 ==
LOC: S4SX 09:33 → S4NX 14:41
PROVIDERS: Admitting Provider Obstetrics & Gynecology; Visit Provider Obstetrics & Gynecology
DX: O99.844 Bariatric surgery status complicating childbirth (principal); Z37.0 Single live birth; Z3A.39 39 weeks gestation of pregnancy; Z87.59 Personal history of other complications of pregnancy, childbirth and the puerperium; O70.0 First degree perineal laceration during delivery
CPT/HCPCS: 36415; 59025; 85025; 86780; 86850; 86900; 86901; 86923; J2590; J2795; J2916; J3490; J7050; J7120; A9270